=== PATIENT | male | born 1970 | race Caucasian/White ===

== ENCOUNTER → 2021-09-09 | Day surgery (SDC) | payer OTHER ==
[~2021-09-09] VITALS: Ht 175.3 cm; Wt 88.5 kg
[~2021-09-09] MED LIST: ZEGERID 20 MG1 EACH PO; [UNRECOGNIZED DRUG - REMARK]
[2021-09-09 11:09] LABS: HCT 46.8 % (42.0-52.0); HGB 15.9 g/dl (13.2-18.0); MCH 30.5 pg (25.0-31.0); MCV 89.7 fL (78.0-100.0); MPV 8.7 fL (6.0-9.5); RBC 5.22 M/uL (4.70-6.00); RDW 12.8 % (11.5-14.0); WBC 4.5 K/uL (4.0-10.5)
[2021-09-09 11:22] LABS: ALBUMIN 3.9 g/dL (3.4-5.0); BILIRUBIN - TOTAL 0.7 mg/dL (0.2-1.0); BUN/CREAT RATIO (CALC) 18.8 RATIO; CREATININE 0.96 mg/dL (0.67-1.17); GLOBULIN (CALCULATION) 3.7 g/dL; POTASSIUM 4.5 mmol/L (3.5-5.1); TOTAL PROTEIN 7.6 g/dL (6.4-8.2)
== END | disposition home or self-care (01) ==
LOC: FAS 09:15
PROVIDERS: Surgery
DX: K21.00 Gastro-esophageal reflux disease with esophagitis, without bleeding (principal); K22.2 Esophageal obstruction; K29.60 Other gastritis without bleeding; K31.9 Disease of stomach and duodenum, unspecified; Z79.899 Other long term (current) drug therapy
CPT/HCPCS: 36415; 80053; C1726; J2250; J2704; J7120

== ENCOUNTER → 2021-10-21 | Day surgery (SDC) | payer OTHER ==
[~2021-10-21] VITALS: Ht 175.3 cm; Wt 88.5 kg
[2021-10-21 08:06] LABS: HCT 45.6 % (42.0-52.0); HGB 15.7 g/dl (13.2-18.0); MCH 30.6 pg (25.0-31.0); MCHC 34.4 g/dL (32.0-36.0); MCV 88.9 fL (78.0-100.0); MPV 8.8 fL (6.0-9.5); RBC 5.13 M/uL (4.70-6.00); RDW 12.4 % (11.5-14.0); WBC 4.7 K/uL (4.0-10.5)
[2021-10-21 08:21] LABS: ALBUMIN 3.9 g/dL (3.4-5.0); BILIRUBIN - TOTAL 0.7 mg/dL (0.2-1.0); BUN/CREAT RATIO (CALC) 15.5 RATIO; CREATININE 0.97 mg/dL (0.67-1.17); GLOBULIN (CALCULATION) 3.4 g/dL; POTASSIUM 4.3 mmol/L (3.5-5.1); TOTAL PROTEIN 7.3 g/dL (6.4-8.2)
== END | disposition home or self-care (01) ==
LOC: FAS 07:23
PROVIDERS: Surgery
DX: K22.2 Esophageal obstruction (principal); K20.0 Eosinophilic esophagitis; G43.909 Migraine, unspecified, not intractable, without status migrainosus; K21.9 Gastro-esophageal reflux disease without esophagitis
CPT/HCPCS: 36415; 80053; C1726; J2250; J2704; J7120